=== PATIENT | male | born 1990 | race American Indian/Alaskan Native ===

== ENCOUNTER 2019-04-10 15:32 | Inpatient (IN) | payer MEDICAID ==
--- NOTE | 2019-04-10 16:23 | Event Note ---
ED Screening Note ED Screening Note: N/V that began today fatigue having increased drainage from all of his wound sites states he saw wound clinic today and did not have the wound vac put back on +chills PMHx spinal cord injury at T4, neurogenic bladder (pt self caths), sacral wounds with wound vac sees wound care at [facility] This initial assessment/diagnostic orders/clinical plan/treatment(s) is/are subject to change based on patients health status, clinical progression and re- assessment by fellow clinical providers in the ED. Further treatment and workup at subsequent clinical providers discretion. Patient/guardian urged not to elope from the ED as their condition may be serious if not clinically assessed and managed. Initial orders include: labs, UA
[2019-04-10 16:57] LABS: Basophils # (Auto) 0.1 K/mm3 (0.0-0.1); Basophils % (Auto) 0.8 % (0.0-1.8); Eosinophils # (Auto) 0.1 K/mm3 (0.0-0.4); Eosinophils % (Auto) 0.3 % (0.0-4.3); Hematocrit 35.8 % (35.5-45.6); Hemoglobin 12.1 gm/dl (11.8-15.2); Lymphocytes # (Auto) 2.2 K/mm3 (1.2-5.4); Lymphocytes % (Auto) 12.3 % (13.4-35.0); Mean Corpuscular HGB Conc 34 % (32-34); Monocytes # (Auto) 0.8 K/mm3 (0.0-0.8); Monocytes % (Auto) 4.5 % (0.0-7.3); Platelet Count 624 K/mm3 (140-440); Red Blood Count 5.71 M/mm3 (3.65-5.03)
[2019-04-10 17:05] LABS: Mean Corpuscular Volume 63 fl (84-94); Red Cell Distribution Width 21.4 % (13.2-15.2)
[2019-04-10 17:24] LABS: Alanine Aminotransferase 57 units/L (7-56); Albumin 3.6 g/dL (3.9-5); BUN/Creatinine Ratio 13; Blood Urea Nitrogen 8 mg/dL (9-20); Calcium 9.7 mg/dL (8.4-10.2); Hemolysis Index 80
[2019-04-10 18:06] LABS: Bacteria,Urine 4+ /HPF (Negative); Bilirubin,Urine NEG (Negative); Blood,Urine NEG (Negative); Color,Urine Yellow (Yellow); Hyaline Casts,Urine 10 /LPF; Mucus,Urine 2+ /HPF; Protein,Urine <15 mg/dL mg/dL (Negative); Urobilinogen,Urine < 2.0 mg/dL (<2.0)
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
[2019-04-10] MEDS ORDERED: NACL 0.9% 1000 ML 1,000 ML IV ONE (22:39)
[2019-04-10] MEDS ORDERED: MAXIPIME/NS 2 GM/100 ML 2 GM/100 ML BAG IV ONE (22:39)
[2019-04-10] MEDS ORDERED: ULTRAM PO ONE (22:50)
[2019-04-10] MEDS ORDERED: LIORESAL ONE (23:14)
[2019-04-10] MEDS: LIORESAL PO ONE (23:36)
--- NOTE | 2019-04-11 00:01 | Cat Scan Report ---
CT abdomen pelvis wo con INDICATION / CLINICAL INFORMATION: uti. weakness. paraplegic. TECHNIQUE: All CT scans at this location are performed using CT dose reduction for ALARA by means of automated e xposure control. COMPARISON: None available. FINDINGS: Limited lower thoracic images show no acute lung disease. ABDOMEN: The gallbladder, liver, spleen, pancreas and kidneys are normal no small bowel dilatation. An inferior vena caval filter is identified. Pelvis: A moderate degree of fecal retention is seen in the rectosigmoid. No acute pelvic inflammatory changes. No dependent fluid collections. There are areas of cytotoxic bone formation the pelvis. IMPRESSION: 1. No acute intra-abdominal or pelvic findings. Signer Name: Aydin Chester MD Signed: 04/10/2019 11:57 PM Workstation Name: [id number]
[2019-04-11] MEDS ORDERED: TYLENOL PO PRN (01:09)
[2019-04-11] MEDS ORDERED: SODIUM CHLORIDE FLUSH SYRINGE 10 ML IV PRN ×2 (01:09→01:12)
[2019-04-11] MEDS ORDERED: ZOFRAN IV PRN (01:12)
[2019-04-11] MEDS ORDERED: VANCOMYCIN/NS 1 GM/250 ML 1 GM/250 ML BAG IV ONE (01:17)
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
[2019-04-11] MEDS ORDERED: VANCOMYCIN 1,500 MG in NACL 0.9% 500 ML 500 ML IV ONE (02:00)
[2019-04-11] MEDS ORDERED: VANCOMYCIN PHARMACY TO DOSE IV SCH (02:00)
[2019-04-11] MEDS ORDERED: MAXIPIME/NS 2 GM/100 ML 2 GM/100 ML BAG IV SCH (06:00)
[2019-04-11] MEDS ORDERED: SODIUM CHLORIDE FLUSH SYRINGE 10 ML IV SCH (10:00)
[2019-04-11] MEDS: NACL 0.9% 1000 ML 1,000 ML IV SCH (10:18)
[2019-04-11] MEDS: SODIUM CHLORIDE FLUSH SYRINGE 10 ML IV SCH ×2 (10:18→21:53)
[2019-04-11] MEDS: PEPCID PO SCH ×2 (10:18→21:53)
[2019-04-11] MEDS: MAXIPIME/NS 2 GM/100 ML 2 GM/100 ML BAG IV SCH ×2 (10:19→18:32)
[2019-04-11] MEDS: VANCOMYCIN/NS 1 GM/250 ML 1 GM/250 ML BAG IV SCH ×2 (14:13→22:30)
[2019-04-11] MEDS: ULTRAM PO PRN (19:23)
[2019-04-11] MEDS: ZANAFLEX PO SCH (21:53)
[2019-04-11] MEDS: LIORESAL PO ONE (21:53)
[2019-04-11] MEDS: LIORESAL PO SCH (21:53)
[2019-04-12] MEDS: MAXIPIME/NS 2 GM/100 ML 2 GM/100 ML BAG IV SCH ×3 (02:19→18:26)
[2019-04-12] MEDS: NACL 0.9% 1000 ML 1,000 ML IV SCH ×3 (02:19→20:38)
[2019-04-12 06:16] LABS: Basophils # (Auto) 0.1 K/mm3 (0.0-0.1); Basophils % (Auto) 0.5 % (0.0-1.8); Eosinophils # (Auto) 0.3 K/mm3 (0.0-0.4); Eosinophils % (Auto) 1.7 % (0.0-4.3); Hematocrit 30.7 % (35.5-45.6); Hemoglobin 10.7 gm/dl (11.8-15.2); Lymphocytes # (Auto) 2.9 K/mm3 (1.2-5.4); Mean Corpuscular HGB Conc 35 % (32-34); Monocytes % (Auto) 6.1 % (0.0-7.3); Platelet Count 547 K/mm3 (140-440); Red Blood Count 4.99 M/mm3 (3.65-5.03)
[2019-04-12 06:18] LABS: BUN/Creatinine Ratio 8; Blood Urea Nitrogen 4 mg/dL (9-20); Calcium 8.2 mg/dL (8.4-10.2); Hemolysis Index 1
[2019-04-12] MEDS: VANCOMYCIN/NS 1 GM/250 ML 1 GM/250 ML BAG IV SCH (06:38)
[2019-04-12 07:10] LABS: Mean Corpuscular Volume 62 fl (84-94); Red Cell Distribution Width 20.7 % (13.2-15.2)
[2019-04-12] MEDS: PEPCID PO SCH ×2 (09:41→23:01)
[2019-04-12] MEDS: LIORESAL PO SCH ×3 (09:41→20:38)
[2019-04-12] MEDS: SODIUM CHLORIDE FLUSH SYRINGE 10 ML IV SCH ×3 (09:43→23:01)
[2019-04-12] MEDS: ULTRAM PO PRN ×2 (11:41→18:18)
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
[2019-04-12] MEDS ORDERED: VANCOMYCIN/NS 1 GM/250 ML 1 GM/250 ML BAG IV SCH (14:00)
--- NOTE | 2019-04-12 14:14 | Progress Note ---
Assessment and Plan Assessment and plan: 28m paraplegic with chronic indwelling jimenez who pw foul smelling urine sepsis due to UTI (Due to indwelling catheter) cont abx, fup cx Sacral decubitus ulcers, and multiple decub all over body cont wound care, do not appear infected -will cont wound care at [facility] upon dc dvt ppx - lovenox History Interval history: Review of systems Constitutional: No fevers, no malaise, no joint pains CVS: No chest pain, no orthopnea, no pedal edema GI: No abdominal pain, no diarrhea, no vomiting, no constipation Respiratory: No shortness of breath, no wheezing, no coughing Hospitalist Physical - Physical exam Narrative exam: General.: Appears well, no distress, nontoxic HEENT: Moist mucous membranes, extraocular muscles intact, no lymphadenopathy Neck: supple Cardiac: S1-S2 heard Lungs: clear to auscultation bilaterally Abdomen: soft , nontender, nondistended, bowel sounds positive Extremities: no edema clubbing or cyanosis Skin: multiple decub all over Neurologic: paraplegic Psych: calm, and cooperative - Constitutional Vitals: Temp Pulse Resp BP Pulse Ox 98.9 F 64 76 H 116/61 100 04/12/19 05:43 04/12/19 11:54 04/12/19 11:54 04/12/19 11:54 04/12/19 11:54 General appearance: Present: mild distress Results - Labs CBC & Chem 7: 04/12/19 05:32 04/12/19 05:32 Labs: Laboratory Last Values WBC 17.1 K/mm3 (4.5-11.0) H 04/12/19 05:32 RBC 4.99 M/mm3 (3.65-5.03) 04/12/19 05:32 Hgb 10.7 gm/dl (11.8-15.2) L 04/12/19 05:32 Hct 30.7 % (35.5-45.6) L 04/12/19 05:32 MCV 62 fl (84-94) L 04/12/19 05:32 MCH 22 pg (28-32) L 04/12/19 05:32 MCHC 35 % (32-34) H 04/12/19 05:32 RDW 20.7 % (13.2-15.2) H 04/12/19 05:32 Plt Count 547 K/mm3 (140-440) H 04/12/19 05:32 Lymph % (Auto) 17.0 % (13.4-35.0) 04/12/19 05:32 Brooke % (Auto) 6.1 % (0.0-7.3) 04/12/19 05:32 Eos % (Auto) 1.7 % (0.0-4.3) 04/12/19 05:32 Baso % (Auto) 0.5 % (0.0-1.8) 04/12/19 05:32 Lymph # 2.9 K/mm3 (1.2-5.4) 04/12/19 05:32 Brooke # 1.0 K/mm3 (0.0-0.8) H 04/12/19 05:32 Eos # 0.3 K/mm3 (0.0-0.4) 04/12/19 05:32 Baso # 0.1 K/mm3 (0.0-0.1) 04/12/19 05:32 Seg Neutrophils % 74.7 % (40.0-70.0) H 04/12/19 05:32 Seg Neutrophils # 12.8 K/mm3 (1.8-7.7) H 04/12/19 05:32 Sodium 138 mmol/L (137-145) 04/12/19 05:32 Potassium 4.3 mmol/L (3.6-5.0) 04/12/19 05:32 Chloride 103.0 mmol/L (98-107) 04/12/19 05:32 Carbon Dioxide 25 mmol/L (22-30) 04/12/19 05:32 14 mmol/L 04/12/19 05:32 BUN 4 mg/dL (9-20) L 04/12/19 05:32 0.5 mg/dL (0.8-1.5) L 04/12/19 05:32 Estimated GFR > 60 ml/min 04/12/19 05:32 8 % 04/12/19 05:32 Glucose 98 mg/dL (75-100) 04/12/19 05:32 Lactic Acid 1.10 mmol/L (0.7-2.0) 04/10/19 Unknown Calcium 8.2 mg/dL (8.4-10.2) L D 04/12/19 05:32 0.50 mg/dL (0.1-1.2) 04/10/19 16:33 AST 48 units/L (5-40) H 04/10/19 16:33 ALT 57 units/L (7-56) H 04/10/19 16:33 88 units/L (35-129) 04/10/19 16:33 8.7 g/dL (6.3-8.2) H 04/10/19 16:33 3.6 g/dL (3.9-5) L 04/10/19 16:33 0.7 % 04/10/19 16:33 Yellow (Yellow) 04/10/19 Unknown Cloudy (Clear) 04/10/19 Unknown 5.0 (5.0-7.0) 04/10/19 Unknown Ur Specific [place] 1.012 (1.003-1.030) 04/10/19 Unknown <15 mg/dl mg/dL (Negative) 04/10/19 Unknown Neg mg/dL (Negative) 04/10/19 Unknown Neg mg/dL (Negative) 04/10/19 Unknown Neg (Negative) 04/10/19 Unknown Neg (Negative) 04/10/19 Unknown Neg (Negative) 04/10/19 Unknown < 2.0 mg/dL (<2.0) 04/10/19 Unknown Ur Leukocyte Esterase Lg (Negative) 04/10/19 Unknown 119.0 /HPF (0.0-6.0) H 04/10/19 Unknown 17.0 /HPF (0.0-6.0) 04/10/19 Unknown U Epithel Cells (Auto) 2.0 /HPF (0-13.0) 04/10/19 Unknown 4+ /HPF (Negative) 04/10/19 Unknown 2+ /HPF 04/10/19 Unknown Hyaline Casts 10 /LPF 04/10/19 Unknown 2+ /HPF 04/10/19 Unknown 1+ /HPF 04/10/19 Unknown Active Medications - Current Medications Current Medications: Generic Name Dose Route Start Last Admin Trade Name Freq PRN Reason Stop Dose Admin Acetaminophen 650 mg 04/11/19 01:12 Tylenol PO Q4H PRN Pain MILD(1-3)/Fever >100.5/LINTON Baclofen 10 mg 04/11/19 20:00 04/12/19 09:41 Lioresal PO 10 mg TID CHARBEL Administration Famotidine 20 mg 04/11/19 10:00 04/12/19 09:41 Pepcid PO 20 mg BID CHARBEL Administration Sodium Chloride 1,000 mls @ 125 mls/hr 04/11/19 02:00 04/12/19 09:42 Nacl 0.9% 1000 Ml IV 125 mls/hr DIRECT CHARBEL Administration Cefepime HCl 2 gm in 100 mls @ 200 mls/hr 04/11/19 10:00 04/12/19 09:41 Maxipime/Ns 2 Gm/100 Ml IV 200 mls/hr Q8H CHARBEL Administration Protocol Ondansetron HCl 4 mg 04/11/19 01:09 Zofran IV Q8H PRN Nausea And Vomiting Sodium Chloride 10 ml 04/11/19 10:00 04/12/19 11:59 Sodium Chloride Flush Syringe 10 Ml IV 10 ml BID CHARBEL Administration Sodium Chloride 10 ml 04/11/19 01:12 Sodium Chloride Flush Syringe 10 Ml IV PRN PRN LINE FLUSH Tizanidine HCl 4 mg 04/11/19 22:00 04/11/19 21:53 Zanaflex PO 4 mg HS CHARBEL Administration Tramadol HCl 50 mg 04/11/19 18:24 04/12/19 11:41 Ultram PO 50 mg Q6HR PRN Administration Pain Nutrition/Malnutrition Assess - Dietary Evaluation Nutrition/Malnutrition Findings: Nutrition Notes Start: 04/11/19 15:03 Freq: Status: Active Protocol: Document 04/11/19 15:04 HOOD (Rec: 04/11/19 15:10 HOOD [email or web address]) Nutrition Notes Need for Assessment generated from: him assistant,MST Initial or Follow up Assessment Other Pertinent Diagnosis Urosepsis, Paraplegia, Chronic decubitus ulcers Current Diet Regular Labs/Tests Reviewed Pertinent Medications Reviewed Height 5 ft 10 in Weight 67.8 kg [place] Body Weight (kg) 75.45 BMI 21.4 Weight Status Appropriate Subjective/Other Information Pt screened for malnutrition risk (wt loss, poor appetite). He is sleeping soundly at time of visit (13:40). Pt likely eating outside foods, as take-out observed on bedside table. ONS coupons and other educational materials left at bedside. Burn Absent Trauma Absent #1 Nutrition Diagnosis Increased nutrient needs ( specify in comment below) Comments: protein Etiology increased demands of wound healing As Evidenced by Signs and Symptoms pt with chronic decubitus ulcers Is patient on ventilator? No Is Patient Ambulatory and/or Out of Bed No REE-([facility]-confined to bed) [phone] Calculation Used for Recommendations [facility] Additional Notes Pro needs 1.25-1.5g/k- 102g/day Fluid needs 1ml/kcal Nutrition Intervention Change Diet Order: Continue current diet order Add Supplement/Snack (indicate name/kcal Ensure Enlive BID /protein ) Landon BID Provides kCal: 890 Provides Protein (gm) 45 Teaching Recipient Patient Teaching Methods Handout Education Handouts Provided ONS Discharge Instruction Sheet [facility] phone number provided Yes Goal #1 Wound healing Goal #2 PO intake of meals plus ONS to meet 100% energy and pro needs Anticipated Discharge Needs: Ensure Enlive and Landon BID Follow-Up By: 04/13/19 Additional Comments F/U: intakes (meals, ONS)
[2019-04-12] MEDS: ZANAFLEX PO SCH (23:01)
[2019-04-13] MEDS: MAXIPIME/NS 2 GM/100 ML 2 GM/100 ML BAG IV SCH ×3 (01:54→19:29)
[2019-04-13] MEDS: ULTRAM PO PRN ×3 (01:54→20:50)
[2019-04-13] MEDS: LIORESAL PO SCH ×3 (08:00→20:53)
[2019-04-13] MEDS: PEPCID PO SCH ×2 (09:32→21:04)
[2019-04-13] MEDS: SODIUM CHLORIDE FLUSH SYRINGE 10 ML IV SCH ×2 (09:32→21:09)
--- NOTE | 2019-04-13 11:02 | Discharge Summary ---
Providers - Providers Date of Admission: 04/11/19 04:05 Attending physician: CALLY KRAMER MD 04/11/19 08:31 Consult to Wound/ET Nurse [CONS] Routine Reason For Exam: wound eval 04/11/19 16:03 Consult to Physician [CONS] Routine Comment: Consulting Provider: CHRISTIAN HA Physician Instructions: Reason For Exam: sepsis, infected decub 04/11/19 16:04 Consult to Physician [CONS] Routine Comment: Consulting Provider: CHRISTIAN HA Physician Instructions: Reason For Exam: infected decub Primary care physician: MODE MANTILLA Hospitalization Condition: Critical Hospital course: . Urosepsis (Due to indwelling catheter) 2. Sacral decubitus ulcers 3. Leukocytosis ( due to above 1&2) Plan: Admit for decubitus ulcers and UTI Started Zosyn 15 and Vanco Consult wound care for evaluation IV fluids for hydration Supportive care Plan d/w patient and SO, voiced understanding Patient's condition and plan of care discussed with Dr. Hickey Disposition: DC/[place]-06 HOME UNDER HOME [facility] Time spent for discharge: 33 mins Core Measure Documentation - Palliative Care Palliative Care/ Comfort Measures: Not Applicable - Core Measures Any of the following diagnoses?: none Exam - Constitutional Vitals: Temp Pulse Resp BP Pulse Ox 98.7 F 60 18 133/74 95 04/13/19 05:10 04/13/19 05:10 04/13/19 05:10 04/13/19 05:10 04/13/19 05:10 General appearance: Present: no acute distress, well-nourished - EENT Eyes: Present: PERRL ENT: hearing intact, clear oral mucosa - Neck Neck: Present: supple, normal ROM - Respiratory Respiratory effort: normal Respiratory: bilateral: CTA - Cardiovascular Heart Sounds: Present: S1 & S2. Absent: rub, click - Extremities Extremities: pulses symmetrical, No edema Peripheral Pulses: within normal limits - Abdominal General gastrointestinal: Present: soft, non-tender, non-distended, normal bowel sounds Male genitourinary: Present: normal - Integumentary Integumentary: Present: clear, warm, dry (multiple clean stage 2-3 decubs all over body) - Musculoskeletal Musculoskeletal: gait normal, strength equal bilaterally - Psychiatric Psychiatric: appropriate mood/affect, intact judgment & insight - Neurologic Neurologic: CNII-XII intact, moves all extremities Plan Follow up with: MODE MANTILLA MD [Primary Care Provider] - 3-5 Days Prescriptions: traMADol [Ultram 50 MG tab] 50 mg PO Q6HR PRN #20 tablet PRN Reason: Pain
[2019-04-13] MEDS: ZOFRAN IV PRN (13:26)
--- NOTE | 2019-04-13 20:08 | Event Note ---
Date: 04/13/19 Went to see patient and he was out of the room. When asked staff I was told he was already discharged. Will see him tomorrow.
[2019-04-13] MEDS: ZANAFLEX PO SCH (21:04)
[2019-04-14] MEDS: MAXIPIME/NS 2 GM/100 ML 2 GM/100 ML BAG IV SCH ×2 (01:37→10:00)
--- NOTE | 2019-04-14 05:36 | Progress Note ---
Assessment and Plan Assessment and plan: 28m paraplegic with chronic indwelling jimenez who pw foul smelling urine sepsis due to UTI (Due to indwelling catheter) cont abx, planned for dc today Sacral decubitus ulcers, and multiple decub all over body cont wound care, do not appear infected -will cont wound care at [facility] upon dc dvt ppx - lovenox patient was planned for dc, but was off floor most of the day, even though he was asked not to leave the medical floor enforce to the RN that the patient is discharged History Interval history: Review of systems Constitutional: No fevers, no malaise, no joint pains CVS: No chest pain, no orthopnea, no pedal edema GI: No abdominal pain, no diarrhea, no vomiting, no constipation Respiratory: No shortness of breath, no wheezing, no coughing Hospitalist Physical - Physical exam Narrative exam: General.: Appears well, no distress, nontoxic HEENT: Moist mucous membranes, extraocular muscles intact, no lymphadenopathy Neck: supple Cardiac: S1-S2 heard Lungs: clear to auscultation bilaterally Abdomen: soft , nontender, nondistended, bowel sounds positive Extremities: no edema clubbing or cyanosis Skin: multiple decub all over Neurologic: paraplegic Psych: calm, and cooperative - Constitutional Vitals: Temp Pulse Resp BP Pulse Ox 99.6 F 93 H 20 95/54 99 04/13/19 22:09 04/13/19 22:09 04/13/19 22:09 04/13/19 22:09 04/13/19 22:09 General appearance: Present: mild distress Results - Labs CBC & Chem 7: 04/12/19 05:32 04/12/19 05:32 Labs: Laboratory Last Values WBC 17.1 K/mm3 (4.5-11.0) H 04/12/19 05:32 RBC 4.99 M/mm3 (3.65-5.03) 04/12/19 05:32 Hgb 10.7 gm/dl (11.8-15.2) L 04/12/19 05:32 Hct 30.7 % (35.5-45.6) L 04/12/19 05:32 MCV 62 fl (84-94) L 04/12/19 05:32 MCH 22 pg (28-32) L 04/12/19 05:32 MCHC 35 % (32-34) H 04/12/19 05:32 RDW 20.7 % (13.2-15.2) H 04/12/19 05:32 Plt Count 547 K/mm3 (140-440) H 04/12/19 05:32 Lymph % (Auto) 17.0 % (13.4-35.0) 04/12/19 05:32 [place] % (Auto) 6.1 % (0.0-7.3) 04/12/19 05:32 Eos % (Auto) 1.7 % (0.0-4.3) 04/12/19 05:32 Baso % (Auto) 0.5 % (0.0-1.8) 04/12/19 05:32 Lymph # 2.9 K/mm3 (1.2-5.4) 04/12/19 05:32 [place] # 1.0 K/mm3 (0.0-0.8) H 04/12/19 05:32 Eos # 0.3 K/mm3 (0.0-0.4) 04/12/19 05:32 Baso # 0.1 K/mm3 (0.0-0.1) 04/12/19 05:32 Seg Neutrophils % 74.7 % (40.0-70.0) H 04/12/19 05:32 Seg Neutrophils # 12.8 K/mm3 (1.8-7.7) H 04/12/19 05:32 Sodium 138 mmol/L (137-145) 04/12/19 05:32 Potassium 4.3 mmol/L (3.6-5.0) 04/12/19 05:32 Chloride 103.0 mmol/L (98-107) 04/12/19 05:32 Carbon Dioxide 25 mmol/L (22-30) 04/12/19 05:32 14 mmol/L 04/12/19 05:32 BUN 4 mg/dL (9-20) L 04/12/19 05:32 0.5 mg/dL (0.8-1.5) L 04/12/19 05:32 Estimated GFR > 60 ml/min 04/12/19 05:32 8 % 04/12/19 05:32 Glucose 98 mg/dL (75-100) 04/12/19 05:32 Lactic Acid 1.10 mmol/L (0.7-2.0) 04/10/19 Unknown Calcium 8.2 mg/dL (8.4-10.2) L D 04/12/19 05:32 0.50 mg/dL (0.1-1.2) 04/10/19 16:33 AST 48 units/L (5-40) H 04/10/19 16:33 ALT 57 units/L (7-56) H 04/10/19 16:33 88 units/L (35-129) 04/10/19 16:33 8.7 g/dL (6.3-8.2) H 04/10/19 16:33 3.6 g/dL (3.9-5) L 04/10/19 16:33 0.7 % 04/10/19 16:33 Yellow (Yellow) 04/10/19 Unknown Cloudy (Clear) 04/10/19 Unknown 5.0 (5.0-7.0) 04/10/19 Unknown Ur Specific [place] 1.012 (1.003-1.030) 04/10/19 Unknown <15 mg/dl mg/dL (Negative) 04/10/19 Unknown Neg mg/dL (Negative) 04/10/19 Unknown Neg mg/dL (Negative) 04/10/19 Unknown Neg (Negative) 04/10/19 Unknown Neg (Negative) 04/10/19 Unknown Neg (Negative) 04/10/19 Unknown < 2.0 mg/dL (<2.0) 04/10/19 Unknown Ur Leukocyte Esterase Lg (Negative) 04/10/19 Unknown 119.0 /HPF (0.0-6.0) H 04/10/19 Unknown 17.0 /HPF (0.0-6.0) 04/10/19 Unknown U Epithel Cells (Auto) 2.0 /HPF (0-13.0) 04/10/19 Unknown 4+ /HPF (Negative) 04/10/19 Unknown 2+ /HPF 04/10/19 Unknown Hyaline Casts 10 /LPF 04/10/19 Unknown 2+ /HPF 04/10/19 Unknown 1+ /HPF 04/10/19 Unknown Vancomycin Trough 4.0 ug/mL (5.0-20.0) L 04/13/19 05:52 Active Medications - Current Medications Current Medications: Generic Name Dose Route Start Last Admin Trade Name Freq PRN Reason Stop Dose Admin Acetaminophen 650 mg 04/11/19 01:12 Tylenol PO Q4H PRN Pain MILD(1-3)/Fever >100.5/[place] Baclofen 10 mg 04/11/19 20:00 04/13/19 20:53 Lioresal PO 10 mg TID CHARBEL Administration Enoxaparin Sodium 40 mg 04/14/19 22:00 Lovenox SUB-Q QDAY@2200 CHARBEL Famotidine 20 mg 04/11/19 10:00 04/13/19 21:04 Pepcid PO 20 mg BID CHARBEL Administration Sodium Chloride 1,000 mls @ 125 mls/hr 04/11/19 02:00 04/12/19 20:38 Nacl 0.9% 1000 Ml IV 125 mls/hr DIRECT CHARBEL Administration Cefepime HCl 2 gm in 100 mls @ 200 mls/hr 04/11/19 10:00 04/14/19 01:37 Maxipime/Ns 2 Gm/100 Ml IV Not Given Q8H [facility] Protocol Ondansetron HCl 4 mg 04/11/19 01:09 04/13/19 13:26 Zofran IV 4 mg Q8H PRN Administration Nausea And Vomiting Sodium Chloride 10 ml 04/11/19 10:00 04/13/19 21:09 Sodium Chloride Flush Syringe 10 Ml IV Not Given BID CHARBEL Sodium Chloride 10 ml 04/11/19 01:12 Sodium Chloride Flush Syringe 10 Ml IV PRN PRN LINE FLUSH Tizanidine HCl 4 mg 04/11/19 22:00 04/13/19 21:04 Zanaflex PO 4 mg HS CHARBEL Administration Tramadol HCl 50 mg 04/11/19 18:24 04/13/19 20:50 Ultram PO 50 mg Q6HR PRN Administration Pain Nutrition/Malnutrition Assess - Dietary Evaluation Nutrition/Malnutrition Findings: Nutrition Notes Start: 04/11/19 15:03 Freq: Status: Active Protocol: Document 04/13/19 15:13 RM (Rec: 04/13/19 15:19 RM [id number]) Nutrition Notes Initial or Follow up Reassessment Other Pertinent Diagnosis Urosepsis, Paraplegia, Chronic decubitus ulcers Current Diet Regular Labs/Tests Reviewed Pertinent Medications Zofran Height 5 ft 10 in Weight 68.6 kg [place] Body Weight (kg) 75.45 BMI 21.7 Subjective/Other Information Pt not in room at time of visit. Per nurse pt ate 50% of breakfast but did not drink [place] or Ensure Enlive. Percent of energy/protein needs met: 58%/51% Burn Absent Trauma Absent #1 Nutrition Diagnosis Increased nutrient needs ( specify in comment below) Diagnosis Progress(for reassessment Continues documentation) Is patient on ventilator? No Is Patient Ambulatory and/or Out of Bed No REE-([place]-confined to bed) 2007.368 [facility] Additional Notes Pro needs 1.25-1.5g/k- 102g/day Fluid needs 1ml/kcal Nutrition Intervention Change Diet Order: Continue current diet order Add Supplement/Snack (indicate name/kcal Continue Ensure Enlive 1 daily /protein ) D/C [place] BID Provides kCal: 700 Provides Protein (gm) 40 Goal #1 Meet at least 75% of calorie and protein needs via PO and ONS intakes Anticipated Discharge Needs: Regular diet w/Ensure Enlive BID Follow-Up By: 04/15/19 Additional Comments Follow for PO and ONS intakes
[2019-04-14] MEDS: LIORESAL PO SCH ×3 (08:00→22:43)
[2019-04-14] MEDS: ULTRAM PO PRN ×2 (09:33→15:41)
[2019-04-14] MEDS: PEPCID PO SCH ×2 (09:33→22:40)
[2019-04-14] MEDS: SODIUM CHLORIDE FLUSH SYRINGE 10 ML IV SCH ×2 (10:00→22:41)
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
[2019-04-14] MEDS: ZOSYN/NS 4.5GM/100ML 4.5 GM/100 ML VIAL IV SCH ×2 (14:00→22:41)
[2019-04-14] MEDS: ZANAFLEX PO SCH (22:40)
[2019-04-14] MEDS: LOVENOX SUB-Q SCH (22:41)
[2019-04-15] MEDS: ULTRAM PO PRN ×3 (04:01→21:48)
[2019-04-15] MEDS: ZOSYN/NS 4.5GM/100ML 4.5 GM/100 ML VIAL IV SCH ×3 (06:42→21:40)
[2019-04-15] MEDS: LIORESAL PO SCH ×3 (09:37→21:40)
[2019-04-15] MEDS: PEPCID PO SCH ×2 (09:37→21:40)
[2019-04-15] MEDS: SODIUM CHLORIDE FLUSH SYRINGE 10 ML IV SCH ×2 (13:59→21:44)
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
[2019-04-15] MEDS: NACL 0.9% 1000 ML 1,000 ML IV SCH (18:17)
[2019-04-15] MEDS: LOVENOX SUB-Q SCH (21:40)
[2019-04-15] MEDS: ZANAFLEX PO SCH (21:43)
[2019-04-16] MEDS: ZOSYN/NS 4.5GM/100ML 4.5 GM/100 ML VIAL IV SCH (05:38)
[2019-04-16 06:16] LABS: Hematocrit 32.2 % (35.5-45.6); Hemoglobin 10.7 gm/dl (11.8-15.2); Mean Corpuscular HGB Conc 33 % (32-34); Platelet Count 601 K/mm3 (140-440); Red Blood Count 5.15 M/mm3 (3.65-5.03)
[2019-04-16] MEDS: ULTRAM PO PRN ×3 (06:25→20:49)
[2019-04-16 06:28] LABS: Mean Corpuscular Volume 63 fl (84-94); Red Cell Distribution Width 20.8 % (13.2-15.2)
[2019-04-16 06:41] LABS: BUN/Creatinine Ratio 6; Blood Urea Nitrogen 3 mg/dL (9-20); Calcium 8.5 mg/dL (8.4-10.2); Hemolysis Index 0
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
[2019-04-16] MEDS: PEPCID PO SCH ×2 (10:54→22:32)
[2019-04-16] MEDS: LIORESAL PO SCH ×3 (10:54→20:49)
[2019-04-16] MEDS: SODIUM CHLORIDE FLUSH SYRINGE 10 ML IV SCH ×2 (13:13→22:00)
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
[2019-04-16] MEDS: MERREM 1,000 MG in NACL 0.9% 100 ML IV SCH ×2 (16:06→22:40)
[2019-04-16] MEDS: LOVENOX SUB-Q SCH (22:32)
[2019-04-16] MEDS: ZANAFLEX PO SCH (22:32)
[2019-04-16] MEDS: NACL 0.9% 1000 ML 1,000 ML IV SCH (22:32)
[2019-04-17] MEDS: ULTRAM PO PRN ×3 (01:48→19:25)
[2019-04-17] MEDS: MERREM 1,000 MG in NACL 0.9% 100 ML IV SCH ×3 (06:02→21:07)
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
[2019-04-17] MEDS: DITROPAN PO SCH ×3 (12:26→19:25)
[2019-04-17] MEDS: PEPCID PO SCH ×2 (12:27→22:49)
[2019-04-17] MEDS: SODIUM CHLORIDE FLUSH SYRINGE 10 ML IV SCH ×2 (12:28→21:09)
[2019-04-17] MEDS: LIORESAL PO SCH ×3 (13:10→19:25)
[2019-04-17] MEDS: NACL 0.9% 1000 ML 1,000 ML IV SCH (13:13)
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
[2019-04-17] MEDS: ZANAFLEX PO SCH (22:49)
[2019-04-17] MEDS: TYLENOL PO PRN (22:49)
--- NOTE | 2019-04-18 00:07 | Cat Scan Report ---
CT ABDOMEN AND PELVIS WITH AND WITHOUT CONTRAST HISTORY: Nausea with vomiting and constipation. Hip infection. COMPARISON: CT of the abdomen and pelvis with contrast from 04/11/2019. TECHNIQUE: Axial, coronal and sagittal CT imaging of the abdomen and pelvis was performed before and after injection of 100 mL Omnipaque [address] scans at this location are performed using CT dose reduction for ALARA by means of automated exposure control. FINDINGS: LOWER CHEST: No significant abnormality. LIVER: No significant abnormality. BILIARY: The gallbladder is contracted and not well evaluated. No biliary ductal dilatation or other significant abnormality. PANCREAS: No significant abnormality. SPLEEN: No significant abnormality. ADRENALS: No significant abnormality. KIDNEYS AND URETERS: No significant abnormality. GI TRACT: The stomach is moderately distended by previously ingested material. No acute abnormality o f the small bowel is noted. The colon contains a large amount of stool without an additional signific ant abnormality. Unremarkable appendix. PERITONEUM: No free fluid. No free air. No fluid collection. LYMPH NODES: Shotty inguinal nodes are seen bilaterally. No additional lymphadenopathy. VASCULATURE: The aorta and its visualized branches are patent and normal in caliber. An infrarenal IV C filter is unchanged in position and appearance. URINARY BLADDER: The bladder is well distended without an additional significant abnormality. REPRODUCTIVE ORGANS: No significant abnormality. ADDITIONAL FINDINGS: Anasarca is noted. There are similar appearing ulcerations located posterior lat erally along the thighs. The adjacent muscles are edematous. There is a probable abscess tracking ant eriorly and medially from the left ulcer and extending to the level of the left hip. This abnormality measures up to 6 cm in AP dimension. There is a small to moderate left hip joint effusion. A sacral decubitus ulcer is unchanged. SKELETAL SYSTEM: No acute abnormality. Heterotopic ossification is noted along the lower thoracic spi ne and hips. Prior fusion of the thoracic spine is partially visualized. Sclerotic/heterogeneous means ges along the sacrum and coccyx likely represent chronic osteomyelitis. IMPRESSION: 1. Stable ulcerations of the pelvis with a probable abscess located along the left hip and stable lef t hip effusion. 2. Stable probable chronic osteomyelitis of the sacrum/coccyx. 3. Findings consistent with constipation. Signer Name: Simon Patricio MD Signed: 04/18/2019 12:03 AM Workstation Name: [id number]
[2019-04-18] MEDS: LOVENOX SUB-Q SCH ×2 (00:15→21:40)
[2019-04-18] MEDS: MERREM 1,000 MG in NACL 0.9% 100 ML IV SCH ×3 (06:36→21:44)
[2019-04-18] MEDS: LIORESAL PO SCH ×3 (08:00→20:55)
[2019-04-18] MEDS: DITROPAN PO SCH ×3 (08:00→20:55)
[2019-04-18] MEDS: ULTRAM PO PRN ×3 (10:03→20:55)
[2019-04-18] MEDS: PEPCID PO SCH ×2 (10:08→21:40)
[2019-04-18] MEDS: SODIUM CHLORIDE FLUSH SYRINGE 10 ML IV SCH ×2 (10:08→23:37)
[2019-04-18] MEDS: TYLENOL PO PRN (13:54)
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
[2019-04-18] MEDS ORDERED: LIDODERM 5% TD SCH (18:00)
[2019-04-18] MEDS: LIDODERM 5% TD SCH (18:12)
[2019-04-18] MEDS: ZANAFLEX PO SCH (21:39)
[2019-04-19] MEDS: DAKIN'S HALF STRENGTH TP SCH ×3 (03:39→22:10)
[2019-04-19] MEDS: ULTRAM PO PRN ×2 (05:00→11:53)
[2019-04-19] MEDS: MERREM 1,000 MG in NACL 0.9% 100 ML IV SCH ×3 (05:40→22:09)
[2019-04-19] MEDS: NACL 0.9% 1000 ML 1,000 ML IV SCH (05:40)
[2019-04-19 06:35] LABS: Hematocrit 29.9 % (35.5-45.6); Hemoglobin 10.2 gm/dl (11.8-15.2); Mean Corpuscular HGB Conc 34 % (32-34); Platelet Count 548 K/mm3 (140-440); Red Blood Count 4.77 M/mm3 (3.65-5.03)
[2019-04-19 06:44] LABS: Mean Corpuscular Volume 63 fl (84-94); Red Cell Distribution Width 20.7 % (13.2-15.2)
[2019-04-19 06:57] LABS: BUN/Creatinine Ratio 8; Blood Urea Nitrogen 3 mg/dL (9-20); Calcium 8.3 mg/dL (8.4-10.2); Hemolysis Index 8
[2019-04-19] MEDS: LIORESAL PO SCH ×3 (09:31→22:09)
[2019-04-19] MEDS: TYLENOL PO PRN ×2 (09:38→17:47)
[2019-04-19] MEDS: PEPCID PO SCH ×2 (09:39→22:09)
[2019-04-19] MEDS: DITROPAN PO SCH ×3 (09:39→22:09)
[2019-04-19] MEDS: SODIUM CHLORIDE FLUSH SYRINGE 10 ML IV SCH ×2 (09:40→22:10)
[2019-04-19] MEDS: LIDODERM 5% TD SCH (09:40)
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
--- NOTE | 2019-04-19 14:35 | Progress Note ---
History Interval history: Patient was seen and examined. Follow-up on current diagnosis Sepsis. No overnight events reported to me. Patient denies any chest pain, shortness breath, nausea/vomiting or severe headaches. Imaging, nursing note, chart, labs and old chart reviewed. Discussed with patient. Girlfriend Shirley at bedside, Kate discussed. He wants her to know medical conditions. Hospitalist Physical - Physical exam Narrative exam: Gen: thin frail, NAD, Awake, Alert, Orientated HEENT: NCAT, EOMI, PERRL, OP Clear Neck: supple, no adenopathy, no thyromegaly, no JVD CVS/Heart: RRR, normal S1S2, pulses present bilaterally Chest/Lungs: CTA B, Symmetrical chest expansion, good air entry bilaterally GI/Abdomen: soft, NTND, good bowel sounds, no guarding or rebound /Bladder: neurogenic bladder Extermity/Skin: hip pressure ulcer, sacral pressure ulcer, see photos, stage 4 MSK: contracted legs Neuro: CN 2-12 grossly intact, no new focal deficits Psych: calm - Constitutional Vitals: Temp Pulse Resp BP Pulse Ox 99.5 F 73 20 130/67 96 04/19/19 11:11 04/19/19 11:11 04/19/19 11:11 04/19/19 11:11 04/19/19 11:11 General appearance: Absent: mild distress, severe distress Results - Labs CBC & Chem 7: 04/19/19 05:55 04/19/19 05:55 Labs: Laboratory Last Values WBC 11.9 K/mm3 (4.5-11.0) H 04/19/19 05:55 RBC 4.77 M/mm3 (3.65-5.03) 04/19/19 05:55 Hgb 10.2 gm/dl (11.8-15.2) L 04/19/19 05:55 Hct 29.9 % (35.5-45.6) L 04/19/19 05:55 MCV 63 fl (84-94) L 04/19/19 05:55 MCH 21 pg (28-32) L 04/19/19 05:55 MCHC 34 % (32-34) 04/19/19 05:55 RDW 20.7 % (13.2-15.2) H 04/19/19 05:55 Plt Count 548 K/mm3 (140-440) H 04/19/19 05:55 Lymph % (Auto) 17.0 % (13.4-35.0) 04/12/19 05:32 [place] % (Auto) 6.1 % (0.0-7.3) 04/12/19 05:32 Eos % (Auto) 1.7 % (0.0-4.3) 04/12/19 05:32 Baso % (Auto) 0.5 % (0.0-1.8) 04/12/19 05:32 Lymph # 2.9 K/mm3 (1.2-5.4) 04/12/19 05:32 [place] # 1.0 K/mm3 (0.0-0.8) H 04/12/19 05:32 Eos # 0.3 K/mm3 (0.0-0.4) 04/12/19 05:32 Baso # 0.1 K/mm3 (0.0-0.1) 04/12/19 05:32 Seg Neutrophils % 74.7 % (40.0-70.0) H 04/12/19 05:32 Seg Neutrophils # 12.8 K/mm3 (1.8-7.7) H 04/12/19 05:32 Sodium 141 mmol/L (137-145) 04/19/19 05:55 Potassium 4.2 mmol/L (3.6-5.0) 04/19/19 05:55 Chloride 103.2 mmol/L (98-107) 04/19/19 05:55 Carbon Dioxide 28 mmol/L (22-30) 04/19/19 05:55 14 mmol/L 04/19/19 05:55 BUN 3 mg/dL (9-20) L 04/19/19 05:55 0.4 mg/dL (0.8-1.5) L 04/19/19 05:55 Estimated GFR > 60 ml/min 04/19/19 05:55 8 % 04/19/19 05:55 Glucose 101 mg/dL (75-100) H 04/19/19 05:55 Lactic Acid 1.10 mmol/L (0.7-2.0) 04/10/19 Unknown Calcium 8.3 mg/dL (8.4-10.2) L 04/19/19 05:55 0.50 mg/dL (0.1-1.2) 04/10/19 16:33 AST 48 units/L (5-40) H 04/10/19 16:33 ALT 57 units/L (7-56) H 04/10/19 16:33 88 units/L (35-129) 04/10/19 16:33 7.70 mg/dL (0.00-1.30) H 04/14/19 11:14 8.7 g/dL (6.3-8.2) H 04/10/19 16:33 3.6 g/dL (3.9-5) L 04/10/19 16:33 0.7 % 04/10/19 16:33 Yellow (Yellow) 04/10/19 Unknown Cloudy (Clear) 04/10/19 Unknown 5.0 (5.0-7.0) 04/10/19 Unknown Ur Specific [place] 1.012 (1.003-1.030) 04/10/19 Unknown <15 mg/dl mg/dL (Negative) 04/10/19 Unknown Neg mg/dL (Negative) 04/10/19 Unknown Neg mg/dL (Negative) 04/10/19 Unknown Neg (Negative) 04/10/19 Unknown Neg (Negative) 04/10/19 Unknown Neg (Negative) 04/10/19 Unknown < 2.0 mg/dL (<2.0) 04/10/19 Unknown Ur Leukocyte Esterase Lg (Negative) 04/10/19 Unknown 119.0 /HPF (0.0-6.0) H 04/10/19 Unknown 17.0 /HPF (0.0-6.0) 04/10/19 Unknown U Epithel Cells (Auto) 2.0 /HPF (0-13.0) 04/10/19 Unknown 4+ /HPF (Negative) 04/10/19 Unknown 2+ /HPF 04/10/19 Unknown Hyaline Casts 10 /LPF 04/10/19 Unknown 2+ /HPF 04/10/19 Unknown 1+ /HPF 04/10/19 Unknown Vancomycin Trough 4.0 ug/mL (5.0-20.0) L 04/13/19 05:52 Active Medications - Current Medications Current Medications: Generic Name Dose Route Start Last Admin Trade Name Freq PRN Reason Stop Dose Admin Acetaminophen 650 mg 04/11/19 01:12 04/19/19 09:38 Tylenol PO 650 mg Q4H PRN Administration Pain MILD(1-3)/Fever >100.5/[place] Baclofen 10 mg 04/11/19 20:00 04/19/19 13:56 Lioresal PO 10 mg TID CHARBEL Administration Enoxaparin Sodium 40 mg 04/14/19 22:00 04/18/19 21:40 Lovenox SUB-Q 40 mg QDAY@2200 CHARBEL Administration Famotidine 20 mg 04/11/19 10:00 04/19/19 09:39 Pepcid PO 20 mg BID CHARBEL Administration Sodium Chloride 1,000 mls @ 125 mls/hr 04/11/19 02:00 04/19/19 05:40 Nacl 0.9% 1000 Ml IV 125 mls/hr DIRECT CHARBEL Administration Meropenem 1,000 mg/ Sodium 100 mls @ 100 mls/hr 04/16/19 12:00 04/19/19 14:15 Chloride IV 04/25/19 22:59 100 mls/hr Q8HR CHARBEL Administration Protocol Lidocaine 1 each 04/18/19 19:00 04/19/19 09:40 Lidoderm 5% TD 1 each QDAY CHARBEL Administration Ondansetron HCl 4 mg 04/11/19 01:09 04/13/19 13:26 Zofran IV 4 mg Q8H PRN Administration Nausea And Vomiting Oxybutynin Chloride 5 mg 04/17/19 14:00 04/19/19 13:55 Ditropan PO 5 mg TID CHARBEL Administration Sodium Chloride 10 ml 04/11/19 10:00 04/19/19 09:40 Sodium Chloride Flush Syringe 10 Ml IV 10 ml BID CHARBEL Administration Sodium Chloride 10 ml 04/11/19 01:12 Sodium Chloride Flush Syringe 10 Ml IV PRN PRN LINE FLUSH Sodium Hypochlorite 1 applic 04/18/19 22:00 04/19/19 09:39 Dakin's Half Strength TP 1 applicatio BID CHARBEL Administration Tizanidine HCl 4 mg 04/11/19 22:00 04/18/19 21:39 Zanaflex PO 4 mg HS CHARBEL Administration Tramadol HCl 50 mg 04/11/19 18:24 04/19/19 11:53 Ultram PO 50 mg Q6HR PRN Administration Pain Nutrition/Malnutrition Assess - Dietary Evaluation Nutrition/Malnutrition Findings: Nutrition Notes Start: 04/11/19 15:03 Freq: Status: Active Protocol: Document 04/15/19 16:00 RM (Rec: 04/15/19 16:07 RM [id number]) Nutrition Notes Initial or Follow up Reassessment Other Pertinent Diagnosis Urosepsis, Paraplegia, Chronic decubitus ulcers Current Diet Regular Labs/Tests Reviewed Pertinent Medications Zofran Height 5 ft 10 in Weight 62.2 kg [place] Body Weight (kg) 75.45 BMI 19.6 Subjective/Other Information Pt stated that his appetite fluctuates. Some days he won't eat at all and other days he will eat all of his meals. Also stated that he has always been a picky eater. Stated that he does not drink ONS d/t disliking the taste. Pt was about to try to eat something he bought from [employer] at time of visit. Burn Absent Trauma Absent #1 Nutrition Diagnosis Increased nutrient needs ( specify in comment below) Diagnosis Progress(for reassessment Continues documentation) Is patient on ventilator? No Is Patient Ambulatory and/or Out of Bed No REE-([facility]-confined to bed) 1931.652 Calculation Used for Recommendations [facility] Additional Notes Pro needs 1.25-1.5g/k- 102g/day Fluid needs 1ml/kcal Nutrition Intervention Change Diet Order: Continue current diet order Add Supplement/Snack (indicate name/kcal D/C Ensure Enlive 1 daily /protein ) Goal #1 Meet at least 75% of calorie and protein needs via PO and ONS intakes Anticipated Discharge Needs: Regular diet Follow-Up By: 04/20/19 Additional Comments Follow for PO and ONS intakes
[2019-04-19] MEDS: LOVENOX SUB-Q SCH (22:08)
[2019-04-19] MEDS: ZANAFLEX PO SCH (22:09)
[2019-04-20] MEDS: ULTRAM PO PRN ×2 (03:34→12:54)
[2019-04-20] MEDS: MERREM 1,000 MG in NACL 0.9% 100 ML IV SCH ×3 (06:33→23:50)
[2019-04-20] MEDS: NACL 0.9% 1000 ML 1,000 ML IV SCH (06:33)
[2019-04-20] MEDS: TYLENOL PO PRN (08:14)
[2019-04-20] MEDS: LIORESAL PO SCH ×3 (08:20→23:50)
[2019-04-20] MEDS: DITROPAN PO SCH ×3 (08:20→23:51)
[2019-04-20 08:33] LABS: Hematocrit 29.8 % (35.5-45.6); Mean Corpuscular HGB Conc 34 % (32-34); Platelet Count 525 K/mm3 (140-440); Red Blood Count 4.76 M/mm3 (3.65-5.03)
[2019-04-20 08:35] LABS: Mean Corpuscular Volume 63 fl (84-94); Red Cell Distribution Width 21.2 % (13.2-15.2)
[2019-04-20 08:48] LABS: BUN/Creatinine Ratio 8; Blood Urea Nitrogen 4 mg/dL (9-20); Calcium 8.3 mg/dL (8.4-10.2); Hemolysis Index 5
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
[2019-04-20] MEDS: DAKIN'S HALF STRENGTH TP SCH ×2 (10:09→22:00)
[2019-04-20] MEDS: LIDODERM 5% TD SCH (10:09)
[2019-04-20] MEDS: PEPCID PO SCH ×2 (10:10→23:51)
[2019-04-20] MEDS: SODIUM CHLORIDE FLUSH SYRINGE 10 ML IV SCH (10:10)
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
[2019-04-20] MEDS: VITAMIN C PO SCH (23:50)
[2019-04-20] MEDS: LOVENOX SUB-Q SCH (23:51)
[2019-04-20] MEDS: ZANAFLEX PO SCH (23:51)
[2019-04-21] MEDS: TYLENOL PO PRN ×2 (00:47→23:51)
[2019-04-21] MEDS: SODIUM CHLORIDE FLUSH SYRINGE 10 ML IV SCH ×3 (03:30→21:17)
[2019-04-21] MEDS: MERREM 1,000 MG in NACL 0.9% 100 ML IV SCH ×3 (06:28→21:15)
[2019-04-21] MEDS: DITROPAN PO SCH ×3 (08:10→21:16)
[2019-04-21] MEDS: LIORESAL PO SCH ×3 (08:10→21:16)
[2019-04-21] MEDS: ULTRAM PO PRN ×2 (08:15→19:03)
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
[2019-04-21] MEDS: DAKIN'S HALF STRENGTH TP SCH (12:37)
[2019-04-21] MEDS: VITAMIN C PO SCH ×2 (12:38→21:15)
[2019-04-21] MEDS: PEPCID PO SCH ×2 (12:38→21:16)
[2019-04-21] MEDS: ZINC SULFATE PO SCH (12:38)
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
--- NOTE | 2019-04-21 13:33 | Anesthesia Day of Surgery ---
Anesthesia Day of Surgery - Day of Surgery Patient Examined: Yes Patient H&P Reviewed: Yes Patient is NPO: Yes
[2019-04-21] MEDS: LIDODERM 5% TD SCH (13:51)
[2019-04-21] MEDS ORDERED: DIPRIVAN 10 MG/ML IV ONE ×2 (14:07→14:48)
[2019-04-21] MEDS ORDERED: VERSED ONE (14:07)
[2019-04-21] MEDS ORDERED: NACL 0.9% 1000 ML 1,000 ML ONE (14:29)
[2019-04-21] MEDS ORDERED: XYLOCAINE MPF 2% ONE (14:33)
[2019-04-21] MEDS ORDERED: NACL 0.9% IR ONE (14:44)
--- NOTE | 2019-04-21 15:30 | Post Operative Note ---
Date of procedure: 04/21/19 Pre-op diagnosis: chronic infected decubitus wound of bilateral ischia and sacrum Post-op diagnosis: same Findings: 1. sacral wound: 7 x 7 x 1.5 cm with 3 cm of undermining to 3 o clock area 2. R ischial wound: 5 x5x 3.5 cm with 8 cm undermining to 12 o clock and 6 cm undermining to 3 oclock 3. left ischial wound: 4.5 cm x 5 x 4cm with 8cm tunneling at 9 oclock Procedure: excisional debridement of bilateral ischial and sacral wound Anesthesia: MAC Surgeon: UMU PATHAK Estimated blood loss: minimal Pathology: list (tissue culture 1. sacral wound 2. right ischial wound 3 left ischial wound) Specimen disposition: to lab Condition: stable Disposition: PACU
[2019-04-21] MEDS ORDERED: ROBINUL ONE ×2 (15:39→15:40)
--- NOTE | 2019-04-21 16:17 | Post Anesthesia Evaluation ---
- Post Anesthesia Evaluation Patient Participated: Yes Airway Patent: Yes Stable Respiratory Function: Yes Nausea/Vomiting: No Temp > 96.8F: Yes Pain Manageable: Yes Adequeate Hydration: Yes Anesthesia Complications: No
[2019-04-21] MEDS: LOVENOX SUB-Q SCH (21:15)
[2019-04-21] MEDS: ZANAFLEX PO SCH (21:16)
[2019-04-22 01:14] LABS: Hemoglobin 9.9 gm/dl (11.8-15.2); Mean Corpuscular HGB Conc 34 % (32-34); Platelet Count 423 K/mm3 (140-440)
[2019-04-22 01:18] LABS: Mean Corpuscular Volume 62 fl (84-94); Red Cell Distribution Width 21.2 % (13.2-15.2)
[2019-04-22 03:43] LABS: Basophils % (Manual) 0 % (0.0-1.8); Eosinophils % (Manual) 0 % (0.0-4.3); Hypochromasia 2+; Total Cells Counted 100
[2019-04-22 03:44] LABS: Large Platelets 1+; Macrocytosis 1+; Target Cells 2+
[2019-04-22 03:45] LABS: Platelet Estimate Consistent w Auto
[2019-04-22] MEDS: MERREM 1,000 MG in NACL 0.9% 100 ML IV SCH ×3 (05:22→22:15)
[2019-04-22] MEDS: ULTRAM PO PRN ×3 (05:23→17:54)
[2019-04-22] MEDS: LIORESAL PO SCH ×3 (07:59→20:11)
[2019-04-22] MEDS: DITROPAN PO SCH ×3 (07:59→20:11)
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
[2019-04-22] MEDS: LIDODERM 5% TD SCH (11:33)
[2019-04-22] MEDS: ZINC SULFATE PO SCH (11:34)
[2019-04-22] MEDS: SODIUM CHLORIDE FLUSH SYRINGE 10 ML IV SCH ×2 (11:34→22:18)
[2019-04-22] MEDS: VITAMIN C PO SCH ×2 (11:34→22:18)
[2019-04-22] MEDS: PEPCID PO SCH ×2 (11:34→22:17)
[2019-04-22] MEDS: DAKIN'S HALF STRENGTH TP SCH ×3 (12:09→22:18)
[2019-04-22] MEDS: TYLENOL PO PRN (12:12)
--- NOTE | 2019-04-22 15:21 | Progress Note ---
Assessment and Plan 28 yo M s/p debridement and washout of b/l ischial and sacral wounds, POD 1 1. 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 paraplegia 3. UTI Plan: 1. c/w dakins packing BID, eventual wound vac placement - likely Saturday 2. offloading 3. optimize nutrition - protein supplements added. 4. c/w IV abx per ID Wound optimized. Pt to follow up in wound care center after discharge. Will s/o Thank you, please call with questions Subjective Date of service: 04/22/19 Narrative: Pt seen and examined. No acute complaints. Still with fevers. Objective Vital Signs - 12hr 04/22/19 04/22/19 05:31 11:56 Temperature 99.8 F H 101.6 F H Pulse Rate 100 H 79 Respiratory 20 16 Rate Blood Pressure 131/68 124/71 O2 Sat by Pulse 96 97 Oximetry - General physical appearance Narrative Exam: Gen: AAOx3. NAD CV: S1, S2+ Resp: even and unlabored Ext: Bilateral ischial wounds and sacral wounds clean without drainage. No odor. No erythema. Packed with one piece of dakins moistened kerlex each and covered with dry dressings. - Labs 04/22/19 00:47 04/20/19 07:09
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
[2019-04-22] MEDS: LOVENOX SUB-Q SCH (22:16)
[2019-04-22] MEDS: ZANAFLEX PO SCH (22:17)
[2019-04-23] MEDS: ULTRAM PO PRN ×3 (01:20→18:17)
--- NOTE | 2019-04-23 02:22 | Operative Report ---
Operative Report Operative Report: Date of procedure: 04/21/19 Pre-op diagnosis: chronic infected decubitus wound of bilateral ischia and sacrum Post-op diagnosis: same Findings: 1. sacral wound: 7 x 7 x 1.5 cm with 3 cm of undermining to 3 o clock area 2. R ischial wound: 5 x5x 3.5 cm with 8 cm undermining to 12 o clock and 6 cm undermining to 3 oclock 3. left ischial wound: 4.5 cm x 5 x 4cm with 8cm tunneling at 9 oclock Procedure: excisional debridement of bilateral ischial and sacral wound Anesthesia: MAC Surgeon: UMU PATHAK Estimated blood loss: minimal Pathology: list (tissue culture 1. sacral wound 2. right ischial wound 3 left ischial wound) Specimen disposition: to lab Condition: stable Disposition: PACU HPI and indication: 28-year-old male who is paraplegic presented to the hospital with fevers and drainage from his chronic wounds. The patient has bilateral ischial and sacral wounds that are being managed at [facility]. The wounds were cultures and found to be infected. The patient continued to have fevers despite wound care with Dakins and antibiotics and therefore it was decided to take him to the operating room for debridement. All risks, benefits, alternatives to surgery were discussed with the patient and consent obtained. Procedure in detail: Patient was identified and taken back to the operating room and placed on the operating room table in lateral decubitus position with the right side up. After anesthesia was induced the area was prepped with Betadine and draped in usual sterile fashion and a timeout was performed. In this position I had access to the right ischial and sacral wounds. I started the debridement with the sacral wound. An excisional debridement of the subcutaneous tissue down to the fascia was performed using a curette. All devitalized tissue was removed and tissue specimens collected to be sent to the lab. The wound was copiously irrigated with pulse lavage. Bleeding was controlled with pressure electrocautery and hemostatic agents such as Surgicel. Once hemostasis was achieved the wound was packed with one piece of Dakins moistened Kerlix. I then turned my attention to the right initial wound. The debridement was performed in a similar fashion to the sacral wound. Sharp debridement on subcutaneous tissue to fascia, tendon was performed using a curette. Once the debridement was complete the wound was irrigated with pulse lavage and hemostasis ensured. It was then packed with one piece of Kerlix moistened with Dakin's. Both wounds were thoroughly inspected and there were no abscess cavities identified and no drainage. 4 x 4 gauze, ABD pads, Medipore tape were applied to both wounds. The patient was then transferred back to his stretcher turned onto his right side. The left ischial wound was then prepped and draped in sterile fashion and the wound debridement similarly to the sacral and right initial wound. Sharp debridement of subcutaneous tissue, tendon was performed using a curette, foreceps, and scissors. Once all devitalized tissue was excised, the wound was irrigated with pulse lavage. Hemostasis was achieved with pressure. The wound was packed with one piece of Dakins moistened Kerlix. This was covered with 4 x 4 gauze, AVD pad, Medipore tape. Please refer to the findings above for measurements. Tissue specimens were obtained from all wounds for culture. At the end of the case, all sponge, instrument, sharp counts were correct 2. The patient was then awoken from anesthesia and taken to PACU in stable condition.
[2019-04-23] MEDS: MERREM 1,000 MG in NACL 0.9% 100 ML IV SCH (05:41)
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
--- NOTE | 2019-04-23 10:59 | XRay Report ---
CHEST 1 VIEW INDICATION: R arm PICC placement. COMPARISON: None. FINDINGS: Support devices: Right PICC tip projects over the SVC in expected position. Heart: Normal. Lungs/Pleura: No acute pulmonary or pleural findings. IMPRESSION: 1. Right PICC projects in expected position. No complications are seen. Signer Name: Ambrosio Griffiths MD Signed: 04/23/2019 10:54 AM Workstation Name: [id number]
[2019-04-23] MEDS: LIDODERM 5% TD SCH (11:04)
[2019-04-23] MEDS: PEPCID PO SCH ×2 (11:06→22:40)
[2019-04-23] MEDS: VITAMIN C PO SCH ×2 (11:06→22:40)
[2019-04-23] MEDS: ZINC SULFATE PO SCH (11:06)
[2019-04-23] MEDS: DAKIN'S HALF STRENGTH TP SCH ×2 (11:11→22:41)
[2019-04-23] MEDS: SODIUM CHLORIDE FLUSH SYRINGE 10 ML IV SCH ×2 (11:11→22:42)
[2019-04-23] MEDS: DITROPAN PO SCH ×3 (11:24→22:40)
[2019-04-23] MEDS: LIORESAL PO SCH ×3 (11:24→22:40)
[2019-04-23] MEDS: LEVAQUIN PO SCH (14:58)
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
[2019-04-23] MEDS: LOVENOX SUB-Q SCH (22:39)
[2019-04-23] MEDS: ZANAFLEX PO SCH (22:40)
[2019-04-24] MEDS: ULTRAM PO PRN ×4 (00:14→20:54)
[2019-04-24 00:36] LABS: Hematocrit 28.4 % (35.5-45.6); Hemoglobin 9.8 gm/dl (11.8-15.2); Mean Corpuscular HGB Conc 35 % (32-34); Platelet Count 375 K/mm3 (140-440); Red Blood Count 4.59 M/mm3 (3.65-5.03)
[2019-04-24 00:40] LABS: Mean Corpuscular Volume 62 fl (84-94); Red Cell Distribution Width 20.9 % (13.2-15.2)
[2019-04-24 04:08] LABS: Basophils % (Manual) 0 % (0.0-1.8); Eosinophils % (Manual) 0 % (0.0-4.3); Hypochromasia 2+; Target Cells 2+; Total Cells Counted 100
[2019-04-24 04:10] LABS: Large Platelets 1+; Platelet Estimate Consistent w Auto
[2019-04-24] MEDS: DITROPAN PO SCH ×3 (08:19→20:54)
[2019-04-24] MEDS: LIORESAL PO SCH ×3 (08:19→20:54)
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
[2019-04-24] MEDS: LEVAQUIN PO SCH (12:00)
[2019-04-24] MEDS: LIDODERM 5% TD SCH (12:00)
[2019-04-24] MEDS: SODIUM CHLORIDE FLUSH SYRINGE 10 ML IV SCH ×2 (12:00→23:10)
[2019-04-24] MEDS: PEPCID PO SCH ×2 (12:00→23:02)
[2019-04-24] MEDS: ZINC SULFATE PO SCH (12:00)
[2019-04-24] MEDS: VITAMIN C PO SCH ×2 (12:00→23:02)
[2019-04-24] MEDS: DAKIN'S HALF STRENGTH TP SCH ×2 (12:01→23:10)
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
[2019-04-24] MEDS: ZANAFLEX PO SCH (23:02)
[2019-04-24] MEDS: LOVENOX SUB-Q SCH (23:02)
[2019-04-25 08:45] LABS: BUN/Creatinine Ratio 15; Blood Urea Nitrogen 6 mg/dL (9-20); Hemolysis Index 0
[2019-04-25] MEDS: LIDODERM 5% TD SCH (09:26)
[2019-04-25] MEDS: PEPCID PO SCH ×2 (09:27→22:29)
[2019-04-25] MEDS: LIORESAL PO SCH ×3 (09:27→22:29)
[2019-04-25] MEDS: ZINC SULFATE PO SCH (09:27)
[2019-04-25] MEDS: VITAMIN C PO SCH ×2 (09:27→22:29)
[2019-04-25] MEDS: LEVAQUIN PO SCH (09:27)
[2019-04-25] MEDS: SODIUM CHLORIDE FLUSH SYRINGE 10 ML IV SCH ×2 (09:27→22:35)
[2019-04-25] MEDS: DITROPAN PO SCH ×3 (09:27→22:29)
[2019-04-25] MEDS: ULTRAM PO PRN ×2 (09:35→22:29)
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
[2019-04-25] MEDS: DAKIN'S HALF STRENGTH TP SCH (13:40)
[2019-04-25] MEDS: ZANAFLEX PO SCH (22:29)
[2019-04-25] MEDS: LOVENOX SUB-Q SCH (22:30)
[2019-04-26] MEDS: DAKIN'S HALF STRENGTH TP SCH ×4 (05:30→22:50)
[2019-04-26] MEDS: LIORESAL PO SCH ×3 (08:13→20:29)
[2019-04-26] MEDS: ULTRAM PO PRN ×3 (08:13→20:30)
[2019-04-26] MEDS: DITROPAN PO SCH ×3 (08:13→20:29)
[2019-04-26] MEDS: LIDODERM 5% TD SCH (12:05)
[2019-04-26] MEDS: ZINC SULFATE PO SCH (12:06)
[2019-04-26] MEDS: LEVAQUIN PO SCH (12:06)
[2019-04-26] MEDS: PEPCID PO SCH ×2 (12:06→21:21)
[2019-04-26] MEDS: VITAMIN C PO SCH ×2 (12:06→21:21)
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
[2019-04-26] MEDS: SODIUM CHLORIDE FLUSH SYRINGE 10 ML IV SCH ×2 (12:23→21:21)
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
[2019-04-26] MEDS: ZANAFLEX PO SCH (21:21)
[2019-04-26] MEDS: LOVENOX SUB-Q SCH (21:21)
[2019-04-27 06:17] VITALS: BP 128/81
[2019-04-27] MEDS: LIORESAL PO SCH ×2 (08:31→14:15)
[2019-04-27] MEDS: ULTRAM PO PRN ×2 (08:31→14:15)
[2019-04-27] MEDS: DITROPAN PO SCH ×2 (08:31→14:15)
[2019-04-27] MEDS: PEPCID PO SCH (11:05)
[2019-04-27] MEDS: LEVAQUIN PO SCH (11:06)
[2019-04-27] MEDS: LIDODERM 5% TD SCH (11:06)
[2019-04-27] MEDS: ZINC SULFATE PO SCH (11:06)
[2019-04-27] MEDS: VITAMIN C PO SCH (11:06)
[2019-04-27] MEDS: SODIUM CHLORIDE FLUSH SYRINGE 10 ML IV SCH (11:11)
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
[2019-04-27] MEDS: DAKIN'S HALF STRENGTH TP SCH ×2 (14:50→14:51)
[2019-04-27] MEDS: ZOFRAN IV PRN ×2 (14:50→14:52)
== END 2019-04-27 16:00 | DRG 673 ==
LOC: ED 15:32 → 3A 04-11 04:05 → UNDODISIN 04-20 20:35
PROVIDERS: ADMIT Internal Medicine; ATTEND Internal Medicine
PROC: 0JB70ZZ Excision of Back Subcutaneous Tissue and Fascia, Open Approach (ICD-10-PCS; principal; 2019-04-21)
PROC: 0LBK0ZZ Excision of Left Hip Tendon, Open Approach (ICD-10-PCS; 2019-04-21)
PROC: 0LBJ0ZZ Excision of Right Hip Tendon, Open Approach (ICD-10-PCS; 2019-04-21)
PROC: 05HY33Z Insertion of Infusion Device into Upper Vein, Percutaneous Approach (ICD-10-PCS; 2019-04-21)
PROC: 02HV33Z Insertion of Infusion Device into Superior Vena Cava, Percutaneous Approach (ICD-10-PCS; 2019-04-23)
DX: T83.511A Infection and inflammatory reaction due to indwelling urethral catheter, initial encounter (principal); A41.9 Sepsis, unspecified organism; L89.154 Pressure ulcer of sacral region, stage 4; L89.214 Pressure ulcer of right hip, stage 4; R65.20 Severe sepsis without septic shock; G82.20 Paraplegia, unspecified; N31.9 Neuromuscular dysfunction of bladder, unspecified; E44.0 Moderate protein-calorie malnutrition; N30.01 Acute cystitis with hematuria; F17.200 Nicotine dependence, unspecified, uncomplicated; Z71.6 Tobacco abuse counseling; Z71.3 Dietary counseling and surveillance; Z79.899 Other long term (current) drug therapy
CPT/HCPCS: 36415; 71045; 74176; 74177; 74178; 80048; 80053; 80202; 81001; 82140; 85007; 85025; 85027; 86140; 87040; 87076; 87086; 87116; 87186; 96365; 96375; 99406; G0378; A4217; A6260; J0692; J1650; J2185; J2250; J2405; J2543; J2704; J3370; J7030; J7040; Q9967